=== PATIENT | female | born 1955 | race American Indian/Alaskan Native ===

== ENCOUNTER 2017-05-19 07:03 | Day surgery (SDC) | payer MEDICARE, BC ==
[2017-04-23 11:19] VITALS: BMI 23.6
[2017-05-19] MEDS ORDERED: Iodixanol 320 MG/ML 100 ML BOTTLE IV ONE ×2 (07:57→08:50)
[2017-05-19] MEDS ORDERED: Iodixanol 320 MG/ML 200 ML BOTTLE IV ONE (07:57)
[2017-05-19] MEDS ORDERED: Propofol 10 mg/ml Inj (20 ML) ONE ×6 (07:59→11:10)
[2017-05-19] MEDS ORDERED: Midazolam 2 MG/2 ML VIAL ONE ×2 (07:59→11:04)
[2017-05-19] MEDS ORDERED: Phenylephrine 10 mg/ml Inj ONE (08:05)
[2017-05-19] MEDS ORDERED: Lidocaine 2% Inj (20ml) ONE (08:29)
[2017-05-19] MEDS ORDERED: Etomidate 20 mg/10ml Inj IV ONE (11:03)
--- NOTE | 2017-05-19 11:30 | PCM.SURG1 ---
Surgeon's Initial Post Op Note - Surgeon's Notes Surgeon: alee Java Sql Developer: 0 Type of Anesthesia: IV Sedation Anesthesia Administered By: christian Pre-Operative Diagnosis: pvd. occluded stents left leg. claudication Operative Findings: occluded stents left leg. persistent irregularity at distal edge. subequently 6x60 Absolute stent. perclose right Post-Operative Diagnosis: same Operation Performed: aortofemoral angiogram via right groin. selective catherization of left femoral artery. pathway atherectomy. dcb angioplasty and stent to distal edge of previous stents Specimen/Specimens Removed: 0 Estimated Blood Loss: EBL {In ML}: 100 Blood Products Given: N/A Drains Used: No Drains Post-Op Condition: Good Date of Surgery/Procedure: 05/19/17 Time of Surgery/Procedure: 11:31
--- NOTE | 2017-05-20 06:37 | VAS ---
DATE: 05/19/2017 PREOPERATIVE DIAGNOSES: Claudication of leg, occluded stents. PROCEDURE CARRIED OUT: Aortofemoral angiogram via right groin with selective catheterization of the left femoral artery, Pathway atherectomy of the left superficial femoral artery, balloon angioplasty using a drug-coated balloon [employer], and then placement of a 6 x 60 stent at the distal or terminal edge of the previously placed stent due to persistent irregularities. SURGEON: Alek Zambrano Jr., MD [employer] PROFESSIONAL: None. ANESTHESIOLOGIST: Dr. Parikh. INDICATIONS: The patient is 62-year-old woman who has had multiple peripheral interventions in the past, presents with increasing claudication of the left leg bordering on rest pain. OPERATIVE FINDINGS: 1. The previous stents in the left leg were occluded. 2. We were unable to pass filter wires despite multiple attempts to do so. 3. We did this over bare metal wire. At the end of the procedure after the atherectomy has been carried out, there was persistent irregularity at the distal or terminal portion of the previously placed stents, which required us placing a new 6 x 60 mm stent in this area. Final completion results were excellent. PROCEDURE: The patient was given local anesthesia and intravenous antibiotics. Using ultrasound guidance, the right common femoral artery was punctured. Under fluoroscopic control, the guidewire was advanced centrally. The sheath dilator carried out from the level of the renal arteries down. Angiogram was taken. The aorta and renal arteries were free of significant occlusive disease. There were some irregularities in the mid portion of the common iliac arteries bilaterally, but no stenosis more than 20%. Below this, on the right side, the profunda femoris, common femoral and superficial femoral artery and the tibial vessels were widely patent without any evidence of significant stenosis. On the left side, the superficial femoral artery in the area of the previous stents was completely occluded, reconstituted above the knee joint, above the patella and then reconstituted into robust popliteal artery with vessel runoff via the peroneal and posterior tibial artery. The anterior tibial artery was occluded distally. Distal films taken of the foot showed reconstitution of both the dorsalis pedis and the posterior tibial artery; posterior tibial artery in continuity, the dorsalis pedis . Subsequent to the performance of the diagnostic arteriogram, a stiff-angled guidewire was advanced over the aortic bifurcation. A 7-Bruneian sheath positioned in the common femoral artery. The lesion was then crossed and heparinized and then the Pathway atherectomy device was used to atherectomize the occluded stents. terminal picture. There were still irregularities at the distal anastomosis which required placement of a 6 mm x 60 stent. This resolved the difficulties there, and drug-coated balloons were also used on the proximal and distal portions of the stents of the atherectomized segment. The completion angiogram showed brisk runoff without evidence of any thromboembolic disease and excellent flow through the atherectomized and stented areas. The Perclose device was then deployed in the right groin. The procedure was terminated. OPERATION CARRIED OUT: Aortofemoral angiogram via right groin with selective catheterization of the left femoral artery, Pathway atherectomy of the left superficial femoral artery, balloon angioplasty using [place] drug-coated balloons and then finally deployment of the 6 mm x 60 balloon expandable stent in the distal portion of the superficial femoral artery. Alek Zambrano Jr., MD cc: Itz Greenberg MD
[2017-05-20 16:19] VITALS: RESP 18; O2SAT 99
== END 2017-05-19 16:30 | disposition home or self-care (01) ==
LOC: C.SPRAD 07:03
PROVIDERS: ATTEND Surgery Vascular Surgery
DX: T82.856A Stenosis of peripheral vascular stent, initial encounter (principal); I70.212 Atherosclerosis of native arteries of extremities with intermittent claudication, left leg; Y82.8 Other medical devices associated with adverse incidents; Y83.2 Surgical operation with anastomosis, bypass or graft as the cause of abnormal reaction of the patient, or of later complication, without mention of misadventure at the time of the procedure
CPT/HCPCS: 37227; 94770; J1644; J2001; J2250; J2370; J2704; J3010; Q9966; Q9967